=== PATIENT | male | born 1950 | race Caucasian/White ===

== ENCOUNTER 2019-01-14 12:01 | Inpatient (IN) | payer OTHER ==
[~2019-01-14] VITALS: Ht 172.7 cm; Wt 102.1 kg
--- NOTE | 2019-01-14 12:30 | NUR ---
L SIDED CP RADIATING TO L ARM AND NECK X10 DAYS CONSTANT PRESSURE /10. PT AAOX4, VSS. DENIES DIZZINESS, N/V, WEAKNESS @ THIS TIME. PLACED ON LAYER OUT. AWAITING EVAL BY DUSTIN. WILL CONT TO MONITOR. DAUGHTER @ BS.
[2019-01-14 12:50] LABS: BASOPHILS % (AUTO) 0.6 % (0.0-2.0); EOSINOPHILS % (AUTO) 4.4 % (0.0-6.0); HEMATOCRIT 49 % (39-51); HEMOGLOBIN 16.9 g/dL (13.5-17.5); LYMPHOCYTES # (AUTO) 1.8 /CMM (0.8-4.8); LYMPHOCYTES % (AUTO) 28.7 % (20.0-44.0); MEAN CORPUSCULAR HGB CONC 34 g/dl (31.0-36.0); MEAN CORPUSCULAR VOLUME 89 fL (80-96); MONOCYTES # (AUTO) 0.4 /CMM (0.1-1.30); MONOCYTES % (AUTO) 5.9 % (2.0-12.0); NEUTROPHILS # (AUTO) 3.8 /CMM (1.8-8.9); NEUTROPHILS % (AUTO) 60.4 % (43.0-81.0); PLATELET COUNT (AUTO) 186 /CMM (150-450); RED BLOOD CELL COUNT(AUTO) 5.52 MIL/uL (4.5-6.0); WHITE BLOOD COUNT (AUTO) 6.3 K/uL (4.3-11.0)
[2019-01-14 12:57] LABS: CALCIUM, SERUM 9.4 mg/dL (8.5-10.1); CARBON DIOXIDE 30 mmol/L (21-32); CHLORIDE 105 mmol/L (98-107); CREATININE 1.5 mg/dL (0.6-1.3); GLUCOSE 101 mg/dL (74-106); POTASSIUM 4.6 mmol/L (3.5-5.1); SODIUM SERUM 141 mmol/L (136-145); UREA NITROGEN, BLOOD 17 mg/dL (7-18)
[2019-01-14] MEDS ORDERED: ASPIRIN 325 MG TABLET ONE (12:58)
[2019-01-14] MEDS ORDERED: ASPIRIN 325 MG TABLET PO ONE (13:00)
[2019-01-14] MEDS ORDERED: IV NS 0.9% 1,000 ML BAG IV ONE (13:00)
--- NOTE | 2019-01-14 13:06 | NUR ---
MEDICATED ORDERED, PT SANDRA WELL.
[2019-01-14] MEDS ORDERED: ALLO100T PO (13:21)
[2019-01-14] MEDS ORDERED: CHOL20004 PO (13:21)
[2019-01-14] MEDS ORDERED: OMEP40CA13 PO (13:21)
[2019-01-14] MEDS ORDERED: DICL75TA5 PO (13:21)
--- NOTE | 2019-01-14 13:56 | NUR ---
rn sup was called, waiting for bed assignment
--- NOTE | 2019-01-14 14:07 | NUR ---
[facility] paged
[2019-01-14] MEDS ORDERED: MORPHINE SULFATE INJ 2 MG/ML DISP.SYRIN IV PRN (14:30)
[2019-01-14] MEDS ORDERED: ONDANSETRON HCL/PF 4 MG/2 ML VIAL IVP PRN (14:30)
[2019-01-14] MEDS ORDERED: NITROGLYCERIN 0.4 MG/TAB BOTTLE SL PRN (14:30)
--- NOTE | 2019-01-14 14:52 | NUR ---
PT STABLE, DENIES CP, SOB, DIZZINESS, N/V, ARM/JAW PAIN @ THIS TIME. WILL CONT TO MONITOR.
--- NOTE | 2019-01-14 14:58 | NUR ---
REPORT GIVEN TO LORE AQUINO FOR ELENI.
[2019-01-14] MEDS: ASPIRIN 81 MG TAB.CHEW PO SCH (15:22)
--- NOTE | 2019-01-14 15:40 | NUR ---
ADMISSION NOTE PT WAS BROUGHT UP VIA GURNEY AT THIS TIME, A/O X4 [place] SPEAKING ONLY, BREATHING EVEN AND UNLABORED ON RA WITH NO S/S OF ANY DISTRESS OR COMPLAINTS OF PAIN AT THIS TIME, IV IS PATENT AND INTACT, NOTED TO BE AMBULATORY, SKIN DRY INTACT, ON TELE MONITOR CURRENTLY SHOWING KVNG WITH INVERTED T WAVE 56, DAUGHTER AT BEDSIDE, SAFETY PRECAUTIONS IN PLACE, CALL LIGHT IN REACH, WILL MONITOR ACCORDINGLY
[2019-01-14 16:00] VITALS: BP 118/74
[2019-01-14] MEDS: METOPROLOL TARTRATE 25 MG TABLET PO SCH (16:48)
--- NOTE | 2019-01-14 16:48 | NUR ---
RN NOTE METOPROLOL NOT GIVEN AT THIS TIME DUE TO HEART RATE BEING BRADYCARDIC IN THE 50'S ON TELE MONITOR, NO CURRENT COMPLAINTS OF ANY PAIN OR DISTRESS AT THIS TIME, WILL CONTINUE TO MONITOR
[2019-01-14] MEDS ORDERED: IV 1/2NS 1000 ML 1,000 ML IV PRN (18:00)
--- NOTE | 2019-01-14 18:36 | NUR ---
RN CLOSING NOTE PT IN BED AT LOWEST AND LOCKED POSITION WITH SIDE RAILS UP X2, A/O X4 BREATHING EVEN AND UNLABORED WITH NO DISTRESS OR COMPLAINTS OF PAIN AT THIS TIME, IV IS PATENT AND INTACT, FAMILY AT BEDSIDE, SAFETY PRECAUTIONS IN PLACE, CALL LIGHT IN REACH, ALL NEEDS ATTENDED TO, WILL ENDORSE TO NIGHT RN FOR ELENI.
--- NOTE | 2019-01-14 19:05 | NUR ---
RN NOTES/ASSESSMENT: MET WITH PT AND AT BED SIDE, PT IS A/O X4, [place] AND [place] SPEAKING ONLY. ON RA RESPIRATIONS EVEN AND UNLABORED. PT ABLE TO MAKE NEEDS KNOWN. PT DENIES ANY CHEST PAIN OR DISCOMFORT AT THIS TIME. IV ACCESS PATENT AND FLUSHING WELL, ON HL. ELIZABETH TORREZ HELPED WITH TRANSLATION FOR PT. DISCUSSED PLAN OF CARE, POSSIBLE CTA CHEST IN AM , PT AGREE. ON TELE MONITORING SINUS RHYTHM HR 77. PER REPORT PT HAD EPISODE OF BRADYCARDIA LOWEST 54. SAFETY PRECAUTIONS FOR FALL INITIATED, CALL LIGHT IN REACH, WILL CONTINUE MONITORING PT.
[2019-01-14 20:20] VITALS: BP 116/63
[2019-01-14 20:25] VITALS: BP 116/70
--- NOTE | 2019-01-14 21:44 | NUR ---
RN NOTES/CONSENT FOR CTA CHEST: PT'S DAUGHTER CAME TO VISIT THE PT. HELP IN TRANSLATING AND EXPLAINING TO PT REGARDING PROCEDURE IN AM. ACCORDING TO PT, DR SANTOS ALREADY EXPLAINED THE PROCEDURE TO THEM. PT AGREE FOR THE CTA CHEST, PT SIGNED THE CONSENT.
[2019-01-15] VITALS: BP 105/66
--- NOTE | 2019-01-15 | NUR ---
RN NOTES: REMINDED PT NPO P MN FOR CTA IN AM. PITCHER OF WATER REMOVED FROM THE BEDSIDE TABLE.
[2019-01-15 01:12] VITALS: BP 105/55
[2019-01-15 04:24] VITALS: BP 114/53
[2019-01-15 06:34] LABS: BASOPHILS % (AUTO) 0.4 % (0.0-2.0); EOSINOPHILS % (AUTO) 3.9 % (0.0-6.0); HEMATOCRIT 45 % (39-51); HEMOGLOBIN 15.5 g/dL (13.5-17.5); LYMPHOCYTES % (AUTO) 31.9 % (20.0-44.0); MEAN CORPUSCULAR HGB CONC 35 g/dl (31.0-36.0); MEAN CORPUSCULAR VOLUME 89 fL (80-96); MONOCYTES # (AUTO) 0.4 /CMM (0.1-1.30); NEUTROPHILS # (AUTO) 3.5 /CMM (1.8-8.9); NEUTROPHILS % (AUTO) 56.8 % (43.0-81.0); PLATELET COUNT (AUTO) 168 /CMM (150-450); RED BLOOD CELL COUNT(AUTO) 5.05 MIL/uL (4.5-6.0); WHITE BLOOD COUNT (AUTO) 6.2 K/uL (4.3-11.0)
--- NOTE | 2019-01-15 06:44 | NUR ---
END OF SHIFT SUMMARY: PT RESTING IN BED, DENIES ANY CHEST PAIN THROUGHOUT THE SHIFT. IV ACCESS REMAINS PATENT AND FLUSHING WELL, INFUSING WITH 1/2 NS AT 80ML/HR. NO S/S OF INV INFILTRATION NOTED. PT ON NPO FOR CTA CHEST TODAY. CONSENT SIGNED BY PT. PT SINUS KVNG TO SINUS RHYTHM (LOWEST HR 51). CURRENTLY ON SINUS RHYTHM HR 71 AT THIS TIME. PT INDEPENDENT WITH ADLS. VS REMAINS STABLE, NEEDS ATTENDED. SAFETY PRECAUTIONS FOR FALL REMAINS ENGAGED, CALL LIGHT IN REACH, WILL ENDORSE TO DAY RN FOR CONTINUITY OF CARE.
[2019-01-15 07:21] LABS: CALCIUM, SERUM 7.8 mg/dL (8.5-10.1); CREATININE 1.3 mg/dL (0.6-1.3); MAGNESIUM 1.9 mg/dL (1.8-2.4); PHOSPHORUS 3.1 mg/dL (2.5-4.9)
--- NOTE | 2019-01-15 07:30 | NUR ---
LEGAL OFFICE ADMINISTRATOR NOTES PT IN BED, AWAKE ALERT ORIENTED X 4. DENIES ANY PAIN. IV ACCESS IS CLEAN, PATENT, AND INACT. WITH 1/2 NS INFUSING 80ML/HR. NO SIGNS OF REDNESS, NO INFILTRATION. PT IS NPO FOR CT OF CHEST. PT IS SINUS RHYTHM CURRENTLY HR OF 58. PT IS INDEPENDENT. ALL NEEDS WERE MET AND ATTENDEED. SAFETY PRECAUTIONS IN PLACE. BED ON LOWEST POSITION, LOCKED, AND CALL LIGHT KEPT WITHIN REACH. WILL CONTINUE TO MONITOR.
[2019-01-15 08:00] VITALS: BP 120/72
[2019-01-15 09:00] VITALS: BP 120/72
[2019-01-15] MEDS: METOPROLOL TARTRATE 25 MG TABLET PO SCH (09:00)
[2019-01-15] MEDS: ASPIRIN 81 MG TAB.CHEW PO SCH (09:00)
[2019-01-15] MEDS ORDERED: CT SWABBABLE VALVE TRANS SET 1 EA INFUS.SET MC ONE (10:01)
[2019-01-15] MEDS ORDERED: IOHEXOL-350 100 ML VIAL IV ONE (10:01)
[2019-01-15] MEDS ORDERED: IV NS 0.9% 250 ML IV ONE (10:02)
[2019-01-15 10:04] LABS: ALBUMIN 3.1 g/dL (3.4-5.0); BILIRUBIN,DIRECT 0.1 mg/dL (0.0-0.2); BILIRUBIN,TOTAL 0.3 mg/dL (0.2-1.0); TOTAL PROTEIN, SERUM 6.4 g/dL (6.4-8.2)
[2019-01-15] MEDS ORDERED: METOPROLOL TARTRATE INJ 5 MG/5 ML AMPUL ONE (10:43)
[2019-01-15] MEDS ORDERED: NITROGLYCERIN 4.9 GM SPRAY ONE (10:44)
--- NOTE | 2019-01-15 11:12 | NUR ---
MANAGER BUSINESS INFORMATION NOTES PATIENT CAME BACK IN STABLE CONDITION ON UNIT. ARRIVED AT [address] OF CHEST.
[2019-01-15] MEDS ORDERED: ATOR40TA PO (14:32)
--- NOTE | 2019-01-15 15:01 | NUR ---
DISCHARGE NOTES PATIENT IS MEDICALLY STABLE. DENIES ANY PAIN, NO ACUTE DISTRESS. BREATHING IS EVEN AND UNLABORED. BOTH IV'S OUT WITH CATHETER INTACT. ID BAND IS OFF. DISCHARGE INSTRUCTIONS WERE GIVEN AND PATIENT STATED UNDERSTANDING. PATIENT LEFT WITH AND DAUGHTER. NO NEW SKIN BREAKDOWNS. NO MISSING BELONGINGS. DOCTOR AWARE OF DISCHARGE.
[2019-01-15] MEDS ORDERED: ATORVASTATIN 40 MG TABLET PO SCH (22:00)
== END 2019-01-15 15:30 | disposition home or self-care (01) | DRG 198 ==
LOC: ER 12:03 → TELE 14:29 → MED 01-15 11:38
PROVIDERS: ADMIT Internal Medicine; ATTEND Internal Medicine
DX: I25.110 Atherosclerotic heart disease of native coronary artery with unstable angina pectoris (principal); N17.0 Acute kidney failure with tubular necrosis; E66.9 Obesity, unspecified; Z68.34 Body mass index [BMI] 34.0-34.9, adult; M10.9 Gout, unspecified; Z79.899 Other long term (current) drug therapy; F17.210 Nicotine dependence, cigarettes, uncomplicated
CPT/HCPCS: 36415; 71045-TC; 75574; 80048-TC; 80061-TC; 80076-TC; 82150-TC; 83735-TC; 84100-TC; 84484-TC; 84550-TC; 85025-TC; 85378-TC; 85610-TC; 85652-TC; 85730-TC; 87081-TC; 93307-TC; G0378; J3490; J7030; J7050; Q9967

== ENCOUNTER 2024-06-19 19:36 | Emergency (ER) | payer MEDICAID, OTHER ==
[~2024-06-19] VITALS: Ht 172.7 cm; Wt 95.3 kg
[~2024-06-19 19:36] MED LIST: ALLO100T PO; ATOR40TA PO; CHOL200010 PO; DICL75TA5 PO; OMEP40CA21 PO
[2024-06-19] MEDS: NAPROXEN 250 MG TABLET PO ONE (21:27)
[2024-06-19] MEDS ORDERED: NAPROXEN 250 MG TABLET ONE (21:27)
[2024-06-19] MEDS ORDERED: NAPR-1009 PO (22:23)
[2024-06-19] MEDS ORDERED: ACET-2605 PO (22:23)
[2024-06-20] MEDS: MORPHINE SULFATE INJ 2 MG/ML DISP.SYRIN IM ONE (01:08)
[2024-06-20] MEDS: ONDANSETRON 4 MG TAB.RAPDIS PO ONE (01:08)
[2024-06-20 01:10] VITALS: BP 138/77; TEMP 98; O2SAT 98
== END 2024-06-20 01:10 | disposition home or self-care (01) ==
LOC: ER 19:48
DX: M25.561 Pain in right knee (principal); F17.200 Nicotine dependence, unspecified, uncomplicated; M10.9 Gout, unspecified; Z79.899 Other long term (current) drug therapy; W18.39XA Other fall on same level, initial encounter; Y93.89 Activity, other specified; Y92.89 Other specified places as the place of occurrence of the external cause; Y99.8 Other external cause status
CPT/HCPCS: 73564-TC; 73700-TC